=== PATIENT | female | born 1970 | race Caucasian/White ===

== ENCOUNTER 2017-11-03 08:48 | Day surgery (SDC) | payer MEDICAID ==
[2017-11-03 11:01] VITALS: BMI 35.2
[2017-11-03] MEDS ORDERED: Lactated Ringer's 500 ML IV ONE (11:06)
[2017-11-03 11:22] VITALS: RESP 17
[2017-11-03] MEDS ORDERED: Propofol 10 mg/ml Inj (20 ML) ONE (12:02)
[2017-11-03 12:38] VITALS: TEMP 97
[2017-11-03 12:51] VITALS: BP 102/64; PULSE 71; O2SAT 99
== END 2017-11-03 14:18 | disposition home or self-care (01) ==
LOC: H.ENDO 08:48
PROVIDERS: ATTEND Internal Medicine Gastroenterology
DX: R10.84 Generalized abdominal pain (principal); E78.5 Hyperlipidemia, unspecified; I10 Essential (primary) hypertension; E66.9 Obesity, unspecified; K64.8 Other hemorrhoids; R93.3 Abnormal findings on diagnostic imaging of other parts of digestive tract
CPT/HCPCS: 45378; J2001; J2704; J7120